=== PATIENT | male | born 2000 | race Hispanic/Latino ===

== ENCOUNTER 2022-08-07 16:19 | Emergency (ER) | payer OTHER ==
[~2022-08-07] VITALS: Ht 170.2 cm; Wt 99.0 kg
[2022-08-07 16:30] VITALS: BP 126/76
[2022-08-07 16:46] VITALS: BP 117/83
== END 2022-08-07 17:05 | disposition home or self-care (01) | DRG 605 ==
LOC: ED 16:19
PROC: 0HQ0XZZ Repair Scalp Skin, External Approach (ICD-10-PCS; principal; 2022-08-07)
DX: S01.01XA Laceration without foreign body of scalp, initial encounter (principal); W22.09XA Striking against other stationary object, initial encounter; Y93.H9 Activity, other involving exterior property and land maintenance, building and construction; Y92.007 Garden or yard of unspecified non-institutional (private) residence as the place of occurrence of the external cause

== ENCOUNTER 2022-08-14 07:38 | Emergency (ER) | payer SELFPAY ==
[~2022-08-14] VITALS: Ht 170.2 cm; Wt 75.0 kg
[2022-08-14 08:05] VITALS: BP 113/66
== END 2022-08-14 08:10 | disposition home or self-care (01) | DRG 950 ==
LOC: ED 07:38
DX: S01.01XD Laceration without foreign body of scalp, subsequent encounter (principal); X58.XXXD Exposure to other specified factors, subsequent encounter